=== PATIENT | male | born 1970 | race Caucasian/White ===

== ENCOUNTER 2020-03-11 08:37 | Observation (INO) | payer OTHER ==
[2020-03-11] MEDS ORDERED: HYDROmorphone 1 MG/ML SYRINGE IVP STA ×2 (09:22→11:17)
[2020-03-11] MEDS ORDERED: SODIUM CHLORIDE 0.9% 1,000 ML IV ONE ×2 (09:22→22:48)
[2020-03-11] MEDS ORDERED: IOVERSOL 320 100 ML VIAL IVP ONE ×2 (09:27→15:26)
--- NOTE | 2020-03-11 09:29 | ED Physician Documentation ---
PD HPI ABD PAIN - Stated complaint Stated Complaint: ABD PX - Chief complaint Chief Complaint: Abd Pain - History obtained from History obtained from: Patient - History of Present Illness Timing - onset: Today Timing - duration: Days (1) Timing - details: Abrupt onset Pain level max: 8 Pain level now: 8 Quality: Aching, Pain Location: RLQ, Suprapubic, LLQ Radiation: No: Chest, , Lower back, Left flank, Left shoulder, Right flank, Right shoulder, Upper back Worsened by: Palpation Associated symptoms: Diarrhea. No: Fever, Nausea, Vomiting, Hematemesis, Constipation, Melena, Hematochezia, Dysuria Similar symptoms before: Has not had sx before Recently seen: Not recently seen Review of Systems Constitutional: denies: Fever, Chills Cardiac: denies: Chest pain / pressure Respiratory: denies: Cough GI: reports: Diarrhea. denies: Vomiting, Hematemesis, Bloody / black stool Skin: denies: Rash Musculoskeletal: denies: Neck pain, Back pain Neurologic: denies: Headache PD PAST MEDICAL HISTORY - Past Medical History Past Medical History: Yes Cardiovascular: None Respiratory: None Neuro: None Endocrine/Autoimmune: None GI: GERD, Pancreatitis : None HEENT: Chronic vision loss Psych: None Musculoskeletal: None Derm: None - Past Surgical History Past Surgical History: Yes General: Cholecystectomy Ortho: Spine surgery HEENT: Other - Present Medications Home Medications: Ambulatory Orders Medication Instructions Recorded Confirmed Omeprazole 20 mg PO DAILY 03/11/20 03/11/20 methocarbamoL [Methocarbamol] 500 mg PO Q6H PRN 03/11/20 03/11/20 - Allergies Allergies/Adverse Reactions: Allergies Allergy/AdvReac Type Severity Reaction Status Date / Time Penicillins Allergy Itching Verified 03/11/20 08:43 - Social History Does the pt smoke?: No Smoking Status: Never smoker Does the pt drink ETOH?: No Does the pt have substance abuse?: No - Immunizations Immunizations are current?: Yes - POLST Patient has POLST: No PD ED PE NORMAL - Vitals Vital signs reviewed: Yes - General General: Alert and oriented X 3, Other (appears in pain) - HEENT HEENT: PERRL - Neck Neck: Supple, no meningeal sign - Cardiac Cardiac: RRR, Strong equal pulses - Respiratory Respiratory: No respiratory distress, Clear bilaterally - Abdomen Abdomen: Soft, Non distended, Other (Diffusely tender palpation across the lower abdomen. Positive guarding, positive rebound.) - Back Back: No CVA TTP, No spinal TTP - Derm Derm: Warm and dry - Extremities Extremities: No edema - Neuro Neuro: Alert and oriented X 3 - Psych Psych: Normal mood, Normal affect Results - Vitals Vitals: Vital Signs - 24 hr 03/11/20 03/11/20 03/11/20 08:43 09:18 09:54 Temperature 36.4 C L Heart Rate 103 H 102 H 98 Respiratory 20 20 16 Rate Blood Pressure 121/84 H 140/97 H 120/79 O2 Saturation 94 92 94 03/11/20 10:40 Temperature Heart Rate 92 Respiratory 16 Rate Blood Pressure 123/81 H O2 Saturation 94 Oxygen O2 Source Room air - Labs Labs: Laboratory Tests 03/11/20 03/11/20 03/11/20 09:25 09:25 11:15 WBC 11.5 H RBC 6.41 H Hgb 17.7 Hct 53.1 H MCV 82.8 MCH 27.6 MCHC 33.3 RDW 13.2 Plt Count 233 MPV 10.6 Neut # (Auto) 9.6 H Lymph # (Auto) 1.0 L Wilkinson # (Auto) 0.7 Eos # (Auto) 0.1 Baso # (Auto) 0.0 Absolute Nucleated RBC 0.00 Nucleated RBC % 0.0 Sodium 138 Potassium 3.9 Chloride 100 L Carbon Dioxide 30 Anion Gap 8.0 BUN 19 Creatinine 1.2 Estimated GFR (MDRD) 64 L Glucose 122 H Calcium 10.2 Total Bilirubin 1.0 AST 40 ALT 99 H Alkaline Phosphatase 66 Total Protein 8.9 H Albumin 5.5 Globulin 3.5 Albumin/Globulin Ratio 1.6 Lipase 31 Urine Color DARK YELLOW Urine Clarity CLEAR Urine pH 7.0 Ur Specific [place] <=1.005 Urine Protein 100 H Urine Glucose (UA) NEGATIVE Urine Ketones NEGATIVE Urine Occult Blood NEGATIVE Urine Nitrite NEGATIVE Urine Bilirubin NEGATIVE Urine Urobilinogen 0.2 (NORMAL) Ur Leukocyte Esterase NEGATIVE Urine RBC 0-5 Urine WBC 0-3 Ur Squamous Epith Cells NONE SEEN Urine Bacteria Rare Urine Casts 0-2 Granular Casts Urine Mucus Few Strands Ur Microscopic Review INDICATED Urine Culture Comments NOT INDICATED Ethyl Alcohol < 5.0 - Rads (name of study) CT abdomen pelvis Radiology: Prelim report reviewed, EMP read contemporaneously, See rad report (1. Dilated fluid-filled loop of jejunum with abrupt tapering on coronal image 28. Question partial small bowel obstruction. 2. Fatty liver. 3. Prior cholecystectomy. ) PD MEDICAL DECISION MAKING - ED course Complexity details: reviewed results, re-evaluated patient, considered differential, d/w patient, d/w senior billing consultant ED course: 49-year-old male with what appears to be partial small bowel obstruction. NG tube was placed. Discussed the case with Dr. Tamez, general surgery on-call who will follow. Discussed the case with Dr. Wade, hospitalist who accepts. Pain well controlled. This document was made in part using voice recognition software. While efforts are made to proofread this document, sound alike and grammatical errors may occur. Departure - Departure Disposition: [facility] DC/[facility] Clinical Impression: Small bowel obstruction Condition: Good Discharge Date/Time: 03/11/20 12:25
[2020-03-11 09:51] LABS: BASOPHILS % (AUTO) 0.3 %; EOSINOPHILS # (AUTO) 0.1 10^3/uL (0.0-0.7); HGB - HEMOGLOBIN 17.7 g/dL (14.0-18.0); LYMPHOCYTES % (AUTO) 8.4 %; MEAN CORPUSCULAR HEMOGLOBIN 27.6 pg (27.0-31.0); MEAN CORPUSCULAR HGB CONC 33.3 g/dL (32.0-36.0); MEAN CORPUSCULAR VOLUME 82.8 fL (80.0-94.0); MEAN PLATELET VOLUME 10.6 fL (7.4-11.4); MONOCYTES # (AUTO) 0.7 10^3/uL (0.0-1.0); MONOCYTES % (AUTO) 5.9 %; NEUTROPHILS # (AUTO) 9.6 10^3/uL (1.5-6.6); NEUTROPHILS % (AUTO) 84.1 %; PLT - PLATELET COUNT 233 10^3/uL (130-450); RED BLOOD COUNT 6.41 10^6/uL (4.70-6.10); RED CELL DISTRIBUTION WIDTH 13.2 % (12.0-15.0); WHITE BLOOD COUNT 11.5 x10^3/uL (4.8-10.8)
[2020-03-11 10:05] LABS: ALBUMIN 5.5 g/dL (3.2-5.5); ALBUMIN/GLOBULIN RATIO 1.6 (1.0-2.2); ALKALINE PHOSPHATASE 66 IU/L (42-121); ALT ALANINE AMINOTRANSFERASE 99 IU/L (10-60); AST ASPARTATE AMINOTRANSFERASE 40 IU/L (10-42); BUN - BLOOD UREA NITROGEN 19 mg/dL (6-20); CALCIUM 10.2 mg/dL (8.5-10.3); CARBON DIOXIDE - CO2 30 mmol/L (21-32); CHLORIDE 100 mmol/L (101-111); CREATININE 1.2 mg/dL (0.6-1.2); GLUCOSE 122 mg/dL (70-100); LIPASE 31 U/L (22-51); SODIUM 138 mmol/L (135-145); TOTAL PROTEIN 8.9 g/dL (6.7-8.2)
--- NOTE | 2020-03-11 11:11 | CT Report ---
Reason: difuse lower abd pain Procedure Date: 03/11/2020 Accession Number: [id number] / [id number] Procedure: CT - Abdomen/Pelvis W CPT Code: Final Report FULL RESULT: EXAM: CT ABDOMEN AND PELVIS EXAM DATE: 03/11/2020 10:21 AM. CLINICAL HISTORY: Diffuse lower abd pain. COMPARISONS: None. TECHNIQUE: Routine helical CT imaging was performed through the abdomen and pelvis. IV contrast: 100 mL OPTIRAY 320. Enteric contrast: No. Reconstructions: Coronal and sagittal. In accordance with CT protocol optimization, one or more of the following dose reduction techniques were utilized for this exam: automated exposure control, adjustment of mA and/or KV based on patient size, or use of iterative reconstructive technique. FINDINGS: Lung Bases: Unremarkable. Liver: Fatty liver. No mass evident. Gallbladder/Bile Ducts: Prior cholecystectomy. Spleen: Normal. Pancreas: Normal. Adrenal Glands: Normal. Kidneys: Normal. No masses or hydronephrosis. Peritoneal Cavity/Bowel: Large and small bowel loops are distended with fluid. Most of the small bowel loops are not significantly dilated. There is a loop of dilated jejunum in left hemiabdomen with 4.2 cm diameter and abrupt tapering on coronal image 28. Pelvic Organs: Normal. The bladder and visualized pelvic organs are within normal limits. Vasculature: No aneurysms or other significant abnormality. Bones: No significant abnormality. Other: None. IMPRESSION: 1. Dilated fluid-filled loop of jejunum with abrupt tapering on coronal image 28. Question partial small bowel obstruction. 2. Fatty liver. 3. Prior cholecystectomy. RADIA
[2020-03-11] MEDS ORDERED: LIDOCAINE TOPICAL 4% 50 ML BOTTLE MM STA (11:13)
[2020-03-11] MEDS ORDERED: ONDANSETRON 4 MG/2 ML VIAL IVP PRN (11:24)
[2020-03-11 11:26] LABS: BILIRUBIN,URINE NEGATIVE (NEGATIVE); GLUCOSE, URINE (UA) NEGATIVE (NEGATIVE); KETONES,URINE (UA) NEGATIVE (NEGATIVE); LEUKOCYTE ESTERASE, URINE NEGATIVE (NEGATIVE); NITRITE,URINE NEGATIVE (NEGATIVE); OCCULT BLOOD,URINE NEGATIVE (NEGATIVE); PROTEIN,URINE 100 mg/dL (NEGATIVE); UROBILINOGEN,URINE 0.2 (NORMAL) E.U./dL (NORMAL)
[2020-03-11 11:28] LABS: CLARITY,URINE CLEAR (CLEAR)
--- NOTE | 2020-03-11 11:33 | HISTORY & PHYSICAL EXAMINATION ---
Chief Complaint - Chief Complaint Chief Complaint: abdominal pain History of Present Illness - Admitted From Admitted From:: [facility] ED - History Obtained From Records Reviewed: yes History obtained from: patient - History of Present Illness HPI Comment/Other: Patient is a 49-year-old male who presented to the ED with complaint of lower abdominal pain. It started around 7 AM this morning while he was at work and instantly worsened. His work is sedentary in nature. He described the pain as a crampy/squeezing pain with no radiation. He denied nausea or vomiting fever or chills. He denied chest pain or dyspnea. His last bowel movement was today morning and it was unremarkable. Yesterday he had one episode of diarrhea. He reports a previous occurrence of similar symptoms about 5 years ago. He has history of cholecystectomy in 2013 which was complicated by pancreatitis. He has had 2 or 3 occurrences of pancreatitis for which the work-up has been unremarkable. He does not drink alcohol. Work-up in the ED included a CT of the abdomen pelvis which showed potential partial small bowel obstruction. At the time of presentation his pain was 10 out of 10 scale. He was given a dose of Dilaudid in the ED. He also had an NG tube placed. It is currently current connected to suction with a greenish-yellowish output. Currently he rates his pain 3 out of 10. As a result of the findings, he was presented for admission. History - Past Medical History Cardiovascular: reports: None Respiratory: reports: None Neuro: reports: None Endocrine/Autoimmune: reports: None GI: reports: GERD, Pancreatitis : reports: None HEENT: reports: Chronic vision loss Psych: reports: None Musculoskeletal: reports: None Derm: reports: None MRSA Hx?: No - Past Surgical History General: reports: Cholecystectomy, Colonoscopy (in 01/2020), EGD (in 01/2020) Ortho: reports: Spine surgery, Other (ankle surgery) HEENT: reports: Other - Family & Social History Family History Comment/Other: Cancer on maternal side of family. Unspecified Living arrangement: At home Living Situation: With spouse/s.o. - Substance History Use: Uses substance without health or social issues: NONE - POLST Patient has POLST: No POLST Status: Full Code Meds/Allgy - Home Medications Home Medications: Ambulatory Orders Medication Instructions Recorded Confirmed Omeprazole 20 mg PO DAILY 03/11/20 03/11/20 methocarbamoL [Methocarbamol] 500 mg PO Q6H PRN 03/11/20 03/11/20 - Allergies Allergies/Adverse Reactions: Allergies Allergy/AdvReac Type Severity Reaction Status Date / Time Penicillins Allergy Itching Verified 03/11/20 08:43 Review of Systems - Constitutional Constitutional: denies: Fatigue, Fever, Chills, Weakness - Eyes Eyes: denies: Pain, Irritation - Ears, Nose & Throat Ears, Nose & Throat: denies: Vertigo, Sore throat - Cardiovascular Cariovascular: denies: Irregular heart rate, Palpitations, Chest pain, Edema - Respiratory Respiratory: denies: Cough, Sputum production, Wheezing, SOB at rest, SOB with exertion - Gastrointestinal Gastrointestinal: reports: Abdominal pain, Reflux/heartburn. denies: Nausea, Vomiting - Genitourinary Genitourinary: denies: Dysuria, Frequency, Urgency, Hematuria - Musculoskeletal Musculoskeletal: denies: Muscle pain, Back pain, Muscle aches, Stiffness - Integumentary Integumentary: denies: Rash, Pruritis, Lesions - Neurological Neurological: denies: General weakness, Focal weakness, Headache, Dizziness - Psychiatric Psychiatric: denies: Depression, Anxiety - Endocrine Endocrine: denies: Polyuria, Polydypsia - Hematologic/Lymphatic Hematologic/Lymphatic: denies: Anemia Prior Level of Functionality: He is independent of activities of daily living. He works in the [employer]. Exam - Vital Signs Vital Signs: Vital Signs x48h Temp Pulse Resp BP Pulse Ox 03/11/20 10:40 92 16 123/81 H 94 03/11/20 09:54 98 16 120/79 94 03/11/20 09:18 102 H 20 140/97 H 92 03/11/20 08:43 36.4 C L 103 H 20 121/84 H 94 - Physical Exam General Appearance: positive: Alert, Mild distress, Moderate distress Eyes Bilateral: positive: Normal inspection, PERRL, EOMI ENT: positive: ENT inspection nml, Pharynx nml, No signs of dehydration Neck: positive: No JVD, Trachea midline Respiratory: positive: Chest non-tender, No respiratory distress, Breath sounds nml. negative: Wheezes, Rales, Rhonchi Cardiovascular: positive: Regular rate & rhythm, No murmur Abdomen: positive: No organomegaly, No distention, Tenderness (lower abdomen), Abnml bowel sounds (decreased bowel sounds). negative: Guarding Back: positive: Nml inspection Skin: positive: Color nml, No rash, Warm, Dry. negative: Cyanosis Neurologic/Psychiatric: positive: Oriented x3, Motor nml, Sensation nml, Mood/affect nml Conclusion/Plan - Problem List (1) Partial small bowel obstruction Conclusion/Plan: Patient admitted as observation. Patient made n.p.o. IV hydration with normal saline at 125 mils per hour. NG tube in place. If needed will order medication for pain. Dr. Tamez with general surgery saw the patient. Plan is for conservative management. Bowel rest for now. Will reevaluate in 24 hours if pain worsens and or symptoms do not improve. We will check patient's lipid level. Lipase was 31 (2) GERD (gastroesophageal reflux disease) Conclusion/Plan: Protonic 40mg IV daily. - Lab Results Fish Bones: 03/11/20 09:25 03/11/20 09:25 Core Measures - Anticipated LOS I expect patient to be DC'd or transferred within 96 hours.: Yes - DVT/VTE - Prophylaxis VTE/DVT Device ordered at admit?: Yes
[2020-03-11 11:36] LABS: BACTERIA,URINE Rare /HPF (None Seen); RBC,URINE 0-5 /HPF (0-5); SQUAMOUS EPITHELIAL CELL,UR NONE SEEN (<= Few)
[2020-03-11 11:37] LABS: MUCUS,URINE Few Strands
--- NOTE | 2020-03-11 11:43 | CONSULTATION NOTE ---
Referring Provider Consult Date: 03/11/20 Chief Complaint - Chief Complaint Chief Complaint: SBO History of Present Illness - Admitted From Admitted From:: ED - History Obtained From Records Reviewed: current and past medical records History obtained from: ED MD and patient Exam Limitations: none - History of Present Illness HPI Comment/Other: Wiley is a very pleasant 49 yo WM with a significant PMH/PSH of repeated acute on chronic episodes of pancreatitis. THis started years ago when he was stationed in [place]. He was thoroughly worked up and given an unknown cause of his pancreatitis. He continued to have several episodes and when he returned to the [facility] in 2013 in [place] he was worked up again and was thought he cause was his gallbladder and he underwent surgical removal. IN 2014 he had an episode of SBO resolved with non-surgical treatment and in 2015 he had an episode of pancreatitis resolved with non-surgical treatment. Since 2016 he has been doing well and not had any issues up until his current course. Of note in late january he underwent upper and lower endoscopy and a "look at his pancreas" he states he had benign polyps removed from the pancreas. (I do not have access to these records and am not sure if it was benign colon polyps he had removed and if he underwent the typical EGD or if there was instrumentation to the pancreas.) He feels his current symptoms are similar to those he experienced in 2015 with the SBO as apposed to a pancreatitis episode. He is a non-drinker and non-smoker, is not and was not any medications known to cause pancreatitis, is not aware of any family history of pancreatic problems, but does admit he does not know his father's side family history well. Currently he reports: Timing - onset: Today Timing - duration: Days (1) Timing - details: Abrupt onset Pain level max: 8 Pain level now: 8 Quality: Aching, Pain Location: RLQ, Suprapubic, LLQ Radiation: No: Chest, , Lower back, Left flank, Left shoulder, Right flank, Right shoulder, Upper back Worsened by: Palpation Associated symptoms: Diarrhea. No: Fever, Nausea, Vomiting, Hematemesis, Constipation, Melena, Hematochezia, Dysuria Similar symptoms before: One prior similar episode treated for SBO without surgery in 2014 History - Past Medical History Cardiovascular: reports: None Respiratory: reports: None Neuro: reports: None Endocrine/Autoimmune: reports: None GI: reports: GERD, Pancreatitis : reports: None HEENT: reports: Chronic vision loss Psych: reports: None Musculoskeletal: reports: None Derm: reports: None MRSA Hx?: No - Past Surgical History General: reports: Cholecystectomy Ortho: reports: Spine surgery HEENT: reports: Other - POLST Patient has POLST: No Meds/Allgy - Home Medications Home Medications: Ambulatory Orders Medication Instructions Recorded Confirmed Meloxicam 7.5 mg PO BID PRN 03/11/20 03/11/20 Omeprazole 20 mg PO DAILY 03/11/20 03/11/20 methocarbamoL [Methocarbamol] 500 mg PO Q6H PRN 03/11/20 03/11/20 - Allergies Allergies/Adverse Reactions: Allergies Allergy/AdvReac Type Severity Reaction Status Date / Time Penicillins Allergy Itching Verified 03/11/20 08:43 Review of Systems - Constitutional Constitutional: reports: Fatigue, Poor appetite. denies: Fever, Chills - Eyes Eyes: denies: Pain, Irritation - Ears, Nose & Throat Ears, Nose & Throat: denies: Ear pain, Hearing loss - Cardiovascular Cariovascular: denies: Irregular heart rate, Palpitations, Chest pain - Respiratory Respiratory: denies: Cough, Wheezing - Gastrointestinal Gastrointestinal: reports: Abdominal pain (per HPI) - Genitourinary Genitourinary: denies: Dysuria, Frequency - Musculoskeletal Musculoskeletal: denies: Muscle pain - Integumentary Integumentary: denies: Rash - Neurological Neurological: denies: General weakness, Focal weakness - All Other Systems All Other Systems: reports: Reviewed and negative Exam - Vital Signs Reviewed Vital Signs: Yes Vital Signs: Vital Signs x48h Temp Pulse Resp BP Pulse Ox 03/11/20 10:40 92 16 123/81 H 94 03/11/20 09:54 98 16 120/79 94 03/11/20 09:18 102 H 20 140/97 H 92 03/11/20 08:43 36.4 C L 103 H 20 121/84 H 94 - Physical Exam General Appearance: positive: No acute distress Eyes Bilateral: positive: Normal inspection Neck: positive: Nml inspection Respiratory: positive: No respiratory distress, Breath sounds nml Cardiovascular: positive: Regular rate & rhythm Abdomen: positive: Abnml bowel sounds, Other (Moderate distention with mild diffuse abdmoinal pain, no peritoneal signs, no R/G/R) Skin: positive: Color nml, No rash, Warm, Dry Extremities: positive: Non-tender, Full ROM, Nml appearance Neurologic/Psychiatric: positive: Oriented x3, Mood/affect nml Conclusion and Plan - Lab Results Laboratory Results 03/11/20 11:15: Urine Color DARK YELLOW, Urine Clarity CLEAR, Urine pH 7.0, Ur Specific [place] <=1.005, Urine Protein 100 H, Urine Glucose (UA) NEGATIVE, Urine Ketones NEGATIVE, Urine Occult Blood NEGATIVE, Urine Nitrite NEGATIVE, Urine Bilirubin NEGATIVE, Urine Urobilinogen 0.2 (NORMAL), Ur Leukocyte Esterase NEGATIVE, Urine RBC 0-5, Urine WBC 0-3, Ur Squamous Epith Cells NONE SEEN, Urine Bacteria Rare, Urine Casts 0-2 Granular Casts, Urine Mucus Few Strands, Ur Microscopic Review INDICATED, Urine Culture Comments NOT INDICATED 03/11/20 09:25: Sodium 138, Potassium 3.9, Chloride 100 L, Carbon Dioxide 30, Anion Gap 8.0, BUN 19, Creatinine 1.2, Estimated GFR (MDRD) 64 L, Glucose 122 H, Calcium 10.2, Total Bilirubin 1.0, AST 40, ALT 99 H, Alkaline Phosphatase 66, Total Protein 8.9 H, Albumin 5.5, Globulin 3.5, Albumin/Globulin Ratio 1.6, Lipase 31, Ethyl Alcohol < 5.0 03/11/20 09:25: WBC 11.5 H, RBC 6.41 H, Hgb 17.7, Hct 53.1 H, MCV 82.8, MCH 27.6, MCHC 33.3, RDW 13.2, Plt Count 233, MPV 10.6, Neut # (Auto) 9.6 H, Lymph # (Auto) 1.0 L, Desha # (Auto) 0.7, Eos # (Auto) 0.1, Baso # (Auto) 0.0, Absolute Nucleated RBC 0.00, Nucleated RBC % 0.0 - Diagnostic Imaging Results Diagnostic Imaging Results: positive: Final report reviewed, Read independently Diagnostic Imaging Results Comments: possible early partial SBO with dilated loops of bowel, mainly the small bowel and a short segment of mildly decompress bowel without an obvious transition po int, air throughout the entire bowel to the rectum - Diagnosis Diagnosis: early partial SBO - Plan Plan: In depth, discussion with the patient was held. We went through the normal anatomy and physiology; we then discussed the pathophysiology of the disease and lastly the possible etiologies including his past medical and surgery history. We discussed his specific clinical, laboratory and imaging findings. We then went through the indications for the surgery and the alternatives including open vs laparoscopic approach, and non operative management with NG, IVF, bowel rest and observation. We reviewed the risks, the benefits and potential short term and long-term complications of each of the options. We went through the success rates of each option as related to the level of obstruction and imagining findings. They have expressed understanding of the operations complications to include but not limited to bleeding, infection, need to convert to open operation, injury to neighboring structures, need for bowel resection or ostomy formation, need for further/future surgery, future bowel obstructions, as well as anesthetic complications including blood clots, heart attack, stroke and were explained to the patient. The patient understands and accepts these risks. Their questions were answered to their satisfaction. The patient understands and agrees with our current recommended plan of care of non-surgical conservative approach with NG, NPO, IVF and bowel rest. Hopefully we can obtain his outside records as well to better understand what was done endoscopically.
--- NOTE | 2020-03-11 13:40 | PHARMACY PROGRESS NOTE ---
- Best Possible Medication History Admit Date and Time: 03/11/20 1124 Processed by: Pharmacy Medication History completed: Yes Patient Interview: Completed Secondary Source(s): Insurance records (PATIENT WAS ABLE TO CONFIRM HOMEMEDS ) As the person ultimately responsible for medication therapy, providers are able to order a medication from an existing home medication list in [facility] via the "Reconcile Routine" prior to Confirmation of that medication by contracting support specialist. Such practice is discouraged except when the physician, in their clinical judgment, deems that a medical need exists for a medication without regard to previous use.
[2020-03-11] MEDS: SODIUM CHLORIDE 0.9% 1,000 ML IV SCH ×2 (15:07→16:50)
[2020-03-11] MEDS: PANTOPRAZOLE 40 MG VIAL IVP SCH (16:47)
[2020-03-11] MEDS: SODIUM CHLORIDE FLUSH 0.9% 10 ML SYRINGE IVP SCH (16:47)
[2020-03-11] MEDS: BENZOCAINE SPRAY MM PRN ×2 (16:49→21:46)
[2020-03-11] MEDS ORDERED: MORPHINE 10 MG/ML VIAL IVP PRN (20:43)
[2020-03-12] MEDS: SODIUM CHLORIDE FLUSH 0.9% 10 ML SYRINGE IVP SCH ×4 (01:18→23:38)
--- NOTE | 2020-03-12 01:19 | XRAY Report ---
Reason: For NG tube placement Procedure Date: 03/11/2020 Accession Number: [id number] / [id number] Procedure: XR - Chest for Line Placement CPT Code: Final Report FULL RESULT: EXAM: CHEST RADIOGRAPHY EXAM DATE: 03/11/2020 10:42 PM. CLINICAL HISTORY: For NG tube placement. COMPARISON: None. TECHNIQUE: 1 view. FINDINGS: The enteric tube courses into the stomach. The distal course of the catheter is not well seen as a result of the patient's body habitus. The mediastinal and cardiac silhouettes are normal. Low lung volumes are seen with bibasilar airspace opacities. There is no pleural effusion or pneumothorax. IMPRESSION: The enteric tube courses in the stomach with distal catheter obscured. Low lung volumes with bibasilar airspace opacities. RADIA
[2020-03-12] MEDS: SODIUM CHLORIDE 0.9% 1,000 ML IV SCH ×3 (03:26→19:11)
[2020-03-12 04:55] LABS: BASOPHILS % (AUTO) 0.2 %; EOSINOPHILS # (AUTO) 0.1 10^3/uL (0.0-0.7); HGB - HEMOGLOBIN 14.4 g/dL (14.0-18.0); LYMPHOCYTES % (AUTO) 11.7 %; MEAN CORPUSCULAR HEMOGLOBIN 28.5 pg (27.0-31.0); MEAN CORPUSCULAR HGB CONC 33.6 g/dL (32.0-36.0); MEAN CORPUSCULAR VOLUME 84.8 fL (80.0-94.0); MEAN PLATELET VOLUME 10.1 fL (7.4-11.4); MONOCYTES # (AUTO) 0.7 10^3/uL (0.0-1.0); MONOCYTES % (AUTO) 7.9 %; NEUTROPHILS # (AUTO) 6.5 10^3/uL (1.5-6.6); PLT - PLATELET COUNT 165 10^3/uL (130-450); RED BLOOD COUNT 5.06 10^6/uL (4.70-6.10); RED CELL DISTRIBUTION WIDTH 13.2 % (12.0-15.0); WHITE BLOOD COUNT 8.2 x10^3/uL (4.8-10.8)
[2020-03-12 05:05] LABS: CALCIUM 8.5 mg/dL (8.5-10.3); CREATININE 0.9 mg/dL (0.6-1.2)
[2020-03-12 05:15] LABS: AMYLASE 55 U/L (28-100); CHOL/HDL RATIO 8.6 (<5.0); CHOLESTEROL 164 mg/dL; HDL CHOLESTEROL 19 mg/dL; LDL CHOLESTEROL,CALCULATED 114 mg/dL; LIPASE 33 U/L (22-51); VLDL CHOLESTEROL 31 mg/dL
[2020-03-12] MEDS: PANTOPRAZOLE 40 MG VIAL IVP SCH (06:54)
[2020-03-12] MEDS: SODIUM CHLORIDE FLUSH 0.9% 10 ML SYRINGE IVP PRN (06:54)
[2020-03-12] MEDS: BENZOCAINE SPRAY MM PRN ×2 (06:59→14:58)
[2020-03-12] MEDS: MORPHINE 2 MG/ML CARPUJECT IVP PRN ×3 (07:02→23:38)
--- NOTE | 2020-03-12 07:30 | PROVIDER PROGRESS NOTE ---
Assessment/Plan - Problem List (1) Partial small bowel obstruction Assessment/Plan: Patient's abdominal pain is currently mild. Rated 2 out of 10. Patient has not yet passed gas. NG tube is to suction. There has been 600 mils of greenish-yellow which secretions over the past 24 hours. Patient encouraged to ambulate as much as he can. We will switch patient from observation to inpatient. If no improvement by tomorrow morning, will discuss further with surgery. (2) GERD (gastroesophageal reflux disease) Assessment/Plan: On protonix IV (3) Hypertriglyceridemia Assessment/Plan: Triglycerides mildly elevated at 156 Diet modification encouraged. Patient may follow-up with PCP for further management. - Current Meds Current Meds: Current Medications Generic Name Dose Route Start Last Admin Trade Name Freq PRN Reason Stop Dose Admin Benzocaine 1 sprays 03/11/20 16:11 03/12/20 06:59 Hurricaine MM 1 spr Q4HR PRN Administration Mouth Sore Pain Sodium Chloride 1,000 mls @ 125 mls/hr 03/11/20 12:00 03/12/20 03:26 Normal Saline 0.9% IV 125 mls/hr .Q8H MERON Administration Morphine Sulfate 2 mg 03/11/20 22:21 03/12/20 07:02 Morphine (Carpuject) IVP 2 mg Q2HR PRN Administration PAIN Pantoprazole Sodium 40 mg 03/11/20 12:00 03/12/20 06:54 Protonix IVP 40 mg QDAC MERON Administration Sodium Chloride 10 ml 03/11/20 11:24 03/12/20 06:54 Normal Saline Flush 0.9% IVP 10 ml PRN PRN Administration NEEDED PER PROVIDER ORDERS Sodium Chloride 10 ml 03/11/20 17:00 03/12/20 01:18 Normal Saline Flush 0.9% IVP Not Given 0100,0900,1700 MERON - Lab Result Fish Bone Diagrams: 03/12/20 04:50 03/12/20 04:50 - Additional Planning My Orders: My Active Orders 03/11/20 11:24 Activity Orders [RC] Q2HR IO [RC] IOSHIFT Initiate Bowel Care Protocol [RC] .protocol Initiate Line Care Protocol [RC] QSHIFT Initiate Personal Care Protoco [RC] .protocol Oxygen Therapy [RC] .PRN Telemetry- [RC] Q4HR Vital Signs [RC] Q4HR Ondansetron Inj [Zofran Inj] 4 mg IVP Q6HR PRN Sodium Chloride Flush 0.9% [Normal Saline Flush 0.9%] 10 ml IVP PRN PRN Code Status [OTHERS] Routine Condition of Patient [OTHERS] Routine DVT Prophylaxis [OTHERS] Routine 03/11/20 11:25 NPO except Meds [DIET] 03/11/20 11:26 General Surgery Consult [CONS] Routine 03/11/20 11:27 SCDs [RC] QSHIFT 03/11/20 12:00 Pantoprazole [Protonix] 40 mg IVP QDAC Sodium Chloride 0.9% [Normal Saline 0.9%] 1,000 ml IV 125 mls/hr 03/11/20 16:11 Benzocaine [Hurricaine] 1 sprays MM Q4HR PRN 03/11/20 17:00 Sodium Chloride Flush 0.9% [Normal Saline Flush 0.9%] 10 ml IVP 0100,0900,1700 03/12/20 09:00 Enoxaparin [Lovenox] 40 mg SUBQ DAILY 03/13/20 05:00 BMP - BASIC METABOLIC PANEL [CHEM] DAILYLAB CBC - COMP BLD CT W/AUTO DIFF [HEME] DAILYLAB 03/14/20 05:00 BMP - BASIC METABOLIC PANEL [CHEM] DAILYLAB CBC - COMP BLD CT W/AUTO DIFF [HEME] DAILYLAB 03/15/20 05:00 BMP - BASIC METABOLIC PANEL [CHEM] DAILYLAB CBC - COMP BLD CT W/AUTO DIFF [HEME] DAILYLAB 03/16/20 05:00 BMP - BASIC METABOLIC PANEL [CHEM] DAILYLAB CBC - COMP BLD CT W/AUTO DIFF [HEME] DAILYLAB Subjective - Subjective Patient Reports: Other (Patient seen and examined this morning. He was resting comfortably in bed at time of exam. He rated his pain 2 out of 10. Over the past 24 hours there has been about 600 mils of gastric content via the NG tube. It is mostly greenish-yellowish. He has not been able to pass gas. He denied any other complaints at the moment.) Objective Vital Signs: Vital Signs - 24 hr 03/11/20 03/11/20 03/11/20 08:43 09:18 09:54 Temperature 36.4 C L Heart Rate 103 H 102 H 98 Heart Rate [ Monitoring electrodes] Respiratory 20 20 16 Rate Blood Pressure 121/84 H 140/97 H 120/79 Blood Pressure [Right Brachial artery] O2 Saturation 94 92 94 03/11/20 03/11/20 03/11/20 10:40 12:12 12:29 Temperature 36.6 C Heart Rate 92 100 Heart Rate [ 98 Monitoring electrodes] Respiratory 16 18 14 Rate Blood Pressure 123/81 H 128/87 H Blood Pressure 128/82 H [Right Brachial artery] O2 Saturation 94 96 94 03/11/20 03/11/20 03/11/20 15:58 20:32 23:40 Temperature 36.8 C 36.8 C 37.0 C Heart Rate Heart Rate [ 80 79 82 Monitoring electrodes] Respiratory 16 17 16 Rate Blood Pressure Blood Pressure 115/74 123/71 137/77 H [Right Brachial artery] O2 Saturation 95 96 94 03/12/20 03:00 Temperature 37.1 C Heart Rate Heart Rate [ 80 Monitoring electrodes] Respiratory 16 Rate Blood Pressure Blood Pressure 132/74 H [Right Brachial artery] O2 Saturation 93 Oxygen O2 Source Room air I&O (Last 24 Hrs): Intake and Output Totals x24h 03/10/20 03/11/20 03/12/20 23:59 23:59 23:59 Intake Total 1000 2000 Balance 1000 1999 General: Alert, Oriented x3, Mild distress HEENT: Atraumatic, PERRLA, EOMI, Other (NG tube in place. Connected to wall suction) Neck: Supple, No JVD Neuro: Alert, Oriented Times 3 Cardiovascular: Regular rate, No murmurs Respiratory: Chest non-tender, No respiratory distress, Breath sounds nml Abdomen: Soft, Other (mild lower abdomen tenderness. Decreased bowel sounds) Extremities: No clubbing, No cyanosis, No edema Skin: No rashes - Results Results: Laboratory Results WBC 8.2 x10^3/uL (4.8-10.8) 03/12/20 04:50 RBC 5.06 10^6/uL (4.70-6.10) 03/12/20 04:50 Hgb 14.4 g/dL (14.0-18.0) 03/12/20 04:50 Hct 42.9 % (42.0-52.0) 03/12/20 04:50 MCV 84.8 fL (80.0-94.0) 03/12/20 04:50 MCH 28.5 pg (27.0-31.0) 03/12/20 04:50 MCHC 33.6 g/dL (32.0-36.0) 03/12/20 04:50 RDW 13.2 % (12.0-15.0) 03/12/20 04:50 Plt Count 165 10^3/uL (130-450) 03/12/20 04:50 MPV 10.1 fL (7.4-11.4) 03/12/20 04:50 Neut # (Auto) 6.5 10^3/uL (1.5-6.6) 03/12/20 04:50 Lymph # (Auto) 1.0 10^3/uL (1.5-3.5) L 03/12/20 04:50 [place] # (Auto) 0.7 10^3/uL (0.0-1.0) 03/12/20 04:50 Eos # (Auto) 0.1 10^3/uL (0.0-0.7) 03/12/20 04:50 Baso # (Auto) 0.0 10^3/uL (0.0-0.1) 03/12/20 04:50 Absolute Nucleated RBC 0.00 x10^3/uL 03/12/20 04:50 Nucleated RBC % 0.0 /100WBC 03/12/20 04:50 Sodium 140 mmol/L (135-145) 03/12/20 04:50 Potassium 3.7 mmol/L (3.5-5.0) 03/12/20 04:50 Chloride 106 mmol/L (101-111) 03/12/20 04:50 Carbon Dioxide 26 mmol/L (21-32) 03/12/20 04:50 Anion Gap 8.0 (6-13) 03/12/20 04:50 BUN 18 mg/dL (6-20) 03/12/20 04:50 Creatinine 0.9 mg/dL (0.6-1.2) 03/12/20 04:50 Estimated GFR (MDRD) 89 (>89) 03/12/20 04:50 Glucose 102 mg/dL (70-100) H 03/12/20 04:50 Calcium 8.5 mg/dL (8.5-10.3) 03/12/20 04:50 Total Bilirubin 1.0 mg/dL (0.2-1.0) 03/11/20 09:25 AST 40 IU/L (10-42) 03/11/20 09:25 ALT 99 IU/L (10-60) H 03/11/20 09:25 Alkaline Phosphatase 66 IU/L (42-121) 03/11/20 09:25 Total Protein 8.9 g/dL (6.7-8.2) H 03/11/20 09:25 Albumin 5.5 g/dL (3.2-5.5) 03/11/20 09:25 Globulin 3.5 g/dL (2.1-4.2) 03/11/20 09:25 Albumin/Globulin Ratio 1.6 (1.0-2.2) 03/11/20 09:25 Triglycerides 156 mg/dL (-149) H 03/12/20 04:50 Cholesterol 164 mg/dL (-199) 03/12/20 04:50 LDL Cholesterol, Calc 114 mg/dL (-129) 03/12/20 04:50 VLDL Cholesterol 31 mg/dL 03/12/20 04:50 HDL Cholesterol 19 mg/dL (60-) L 03/12/20 04:50 LDL/HDL Ratio 6.0 (<3.6) 03/12/20 04:50 Cholesterol/HDL Ratio 8.6 (<5.0) 03/12/20 04:50 Amylase 55 U/L (28-100) 03/12/20 04:50 Lipase 33 U/L (22-51) 03/12/20 04:50 Urine Color DARK YELLOW 03/11/20 11:15 Urine Clarity CLEAR (CLEAR) 03/11/20 11:15 Urine pH 7.0 PH (5.0-7.5) 03/11/20 11:15 Ur Specific [place] <=1.005 (1.002-1.030) 03/11/20 11:15 Urine Protein 100 mg/dL (NEGATIVE) H 03/11/20 11:15 Urine Glucose (UA) NEGATIVE mg/dL (NEGATIVE) 03/11/20 11:15 Urine Ketones NEGATIVE mg/dL (NEGATIVE) 03/11/20 11:15 Urine Occult Blood NEGATIVE (NEGATIVE) 03/11/20 11:15 Urine Nitrite NEGATIVE (NEGATIVE) 03/11/20 11:15 Urine Bilirubin NEGATIVE (NEGATIVE) 03/11/20 11:15 Urine Urobilinogen 0.2 (NORMAL) E.U./dL (NORMAL) 03/11/20 11:15 Ur Leukocyte Esterase NEGATIVE (NEGATIVE) 03/11/20 11:15 Urine RBC 0-5 /HPF (0-5) 03/11/20 11:15 Urine WBC 0-3 /HPF (0-3) 03/11/20 11:15 Ur Squamous Epith Cells NONE SEEN (<= Few) 03/11/20 11:15 Urine Bacteria Rare /HPF (None Seen) 03/11/20 11:15 Urine Casts 3-5 Hyaline Casts /LPF0-2 Granular Casts /LPF 03/11/20 11:15 Urine Casts 3-5 Hyaline Casts /LPF0-2 Granular Casts /LPF 03/11/20 11:15 Urine Mucus Few Strands 03/11/20 11:15 Ur Microscopic Review INDICATED 03/11/20 11:15 Urine Culture Comments NOT INDICATED 03/11/20 11:15 Ethyl Alcohol < 5.0 mg/dL 03/11/20 09:25 ABX Reporting Has patient been on IV antibiotics over the past 48 hours?: No
[2020-03-12] MEDS: ENOXAPARIN 40 MG/0.4 ML SYRINGE SUBQ SCH (08:44)
--- NOTE | 2020-03-12 14:16 | PROVIDER PROGRESS NOTE ---
Subjective - General Admit Date: 03/11/20 - Review of Systems Drain Type: NG Drain Output Description: thick bilious color Approximate mls Output: 850 ml General: positive: No symptoms (Over all feeling much better) Gastrointestinal: positive: Other (cramping pain is much less, no gas, no nausea). negative: Nausea, Vomiting, Flatus All Other Systems: positive: Reviewed and negative Objective - Patient Data Reviewed Vital Signs: Yes Vital Signs: Vital Signs x48h Temp Pulse Pulse Resp BP Pulse Ox 03/12/20 11:10 36.8 C 82 16 115/65 93 03/12/20 10:29 37.1 C 87 16 95 03/12/20 08:05 37.1 C 87 17 122/73 93 Weight: Weight 03/10/20 03/11/20 03/12/20 23:59 23:59 23:59 Weight (kg) 111 kg Intake & Output: Intake and Output Totals x24h 03/10/20 03/11/20 03/12/20 23:59 23:59 23:59 Intake Total 1000 3000 Output Total 600 Balance 1000 2400 - Lab Results Lab Results: 03/12/20 04:50 03/12/20 04:50 Other Lab Results: Lab Results x24hrs 03/12/20 03/12/20 03/12/20 Range/Units 04:50 04:50 04:50 WBC 8.2 (4.8-10.8) x10^3/uL RBC 5.06 (4.70-6.10) 10^6/uL Hgb 14.4 (14.0-18.0) g/dL Hct 42.9 (42.0-52.0) % MCV 84.8 (80.0-94.0) fL MCH 28.5 (27.0-31.0) pg MCHC 33.6 (32.0-36.0) g/dL RDW 13.2 (12.0-15.0) % Plt Count 165 (130-450) 10^3/uL MPV 10.1 (7.4-11.4) fL Neut # (Auto) 6.5 (1.5-6.6) 10^3/uL Lymph # (Auto) 1.0 L (1.5-3.5) 10^3/uL [place] # (Auto) 0.7 (0.0-1.0) 10^3/uL Eos # (Auto) 0.1 (0.0-0.7) 10^3/uL Baso # (Auto) 0.0 (0.0-0.1) 10^3/uL Absolute Nucleated RBC 0.00 x10^3/uL Nucleated RBC % 0.0 /100WBC Sodium 140 (135-145) mmol/L Potassium 3.7 (3.5-5.0) mmol/L Chloride 106 (101-111) mmol/L Carbon Dioxide 26 (21-32) mmol/L Anion Gap 8.0 (6-13) BUN 18 (6-20) mg/dL Creatinine 0.9 (0.6-1.2) mg/dL Estimated GFR (MDRD) 89 (>89) Glucose 102 H (70-100) mg/dL Calcium 8.5 (8.5-10.3) mg/dL Triglycerides 156 H ( - 149) mg/dL Cholesterol 164 ( - 199) mg/dL LDL Cholesterol, Calc 114 ( - 129) mg/dL VLDL Cholesterol 31 mg/dL HDL Cholesterol 19 L (60 - ) mg/dL LDL/HDL Ratio 6.0 (<3.6) Cholesterol/HDL Ratio 8.6 (<5.0) Amylase 55 (28-100) U/L Lipase 33 (22-51) U/L - Current Medications Current Medications: Current Medications Generic Name Dose Route Start Last Admin Trade Name Freq PRN Reason Stop Dose Admin Benzocaine 1 sprays 03/11/20 16:11 03/12/20 06:59 Hurricaine MM 1 spr Q4HR PRN Administration Mouth Sore Pain Enoxaparin Sodium 40 mg 03/12/20 09:00 03/12/20 08:44 Lovenox SUBQ 40 mg DAILY MERON Administration Sodium Chloride 1,000 mls @ 125 mls/hr 03/11/20 12:00 03/12/20 11:31 Normal Saline 0.9% IV 125 mls/hr .Q8H MERON Administration Morphine Sulfate 2 mg 03/11/20 22:21 03/12/20 07:02 Morphine (Carpuject) IVP 2 mg Q2HR PRN Administration PAIN Pantoprazole Sodium 40 mg 03/11/20 12:00 03/12/20 06:54 Protonix IVP 40 mg QDAC MERON Administration Sodium Chloride 10 ml 03/11/20 11:24 03/12/20 06:54 Normal Saline Flush 0.9% IVP 10 ml PRN PRN Administration NEEDED PER PROVIDER ORDERS Sodium Chloride 10 ml 03/11/20 17:00 03/12/20 07:55 Normal Saline Flush 0.9% IVP Not Given 0100,0900,1700 MERON - Physical Exam General Appearance: positive: No acute distress ENT: positive: Other (NG tube in place functioning well) Respiratory: positive: No respiratory distress, Breath sounds nml Cardiovascular: positive: Regular rate & rhythm Abdomen: positive: Other (Less distented, minimal diffuse tenderness, soft, no peritoneal signs, no R/G/R, rare BS) Skin: positive: Color nml, Warm, Dry Extremities: positive: Full ROM, Nml appearance Neurologic/Psychiatric: positive: Oriented x3, Mood/affect nml Impression/Plan - Problem List Problem List: SBO most likely secondary to surgical adhesions plan to continue to non-surgical management with NPO, NG, IVF and await bowel function return. Ambulation encouraged and ice chips/popsicles allowed.
[2020-03-13] MEDS: SODIUM CHLORIDE 0.9% 1,000 ML IV SCH ×3 (03:39→20:18)
[2020-03-13 05:35] LABS: BASOPHILS % (AUTO) 0.3 %; EOSINOPHILS # (AUTO) 0.1 10^3/uL (0.0-0.7); EOSINOPHILS % (AUTO) 1.5 %; HGB - HEMOGLOBIN 14.6 g/dL (14.0-18.0); LYMPHOCYTES # (AUTO) 1.1 10^3/uL (1.5-3.5); LYMPHOCYTES % (AUTO) 15.3 %; MEAN CORPUSCULAR HEMOGLOBIN 28.8 pg (27.0-31.0); MEAN CORPUSCULAR HGB CONC 34.2 g/dL (32.0-36.0); MEAN CORPUSCULAR VOLUME 84.2 fL (80.0-94.0); MEAN PLATELET VOLUME 10.6 fL (7.4-11.4); MONOCYTES # (AUTO) 0.7 10^3/uL (0.0-1.0); MONOCYTES % (AUTO) 9.5 %; NEUTROPHILS # (AUTO) 5.5 10^3/uL (1.5-6.6); NEUTROPHILS % (AUTO) 73.1 %; PLT - PLATELET COUNT 175 10^3/uL (130-450); RED BLOOD COUNT 5.07 10^6/uL (4.70-6.10); RED CELL DISTRIBUTION WIDTH 12.8 % (12.0-15.0); WHITE BLOOD COUNT 7.5 x10^3/uL (4.8-10.8)
[2020-03-13 05:39] LABS: CALCIUM 8.7 mg/dL (8.5-10.3); CREATININE 0.9 mg/dL (0.6-1.2)
[2020-03-13] MEDS: PANTOPRAZOLE 40 MG VIAL IVP SCH (06:21)
[2020-03-13] MEDS: SODIUM CHLORIDE FLUSH 0.9% 10 ML SYRINGE IVP PRN (06:21)
[2020-03-13] MEDS: BENZOCAINE SPRAY MM PRN (06:22)
[2020-03-13] MEDS: SODIUM CHLORIDE FLUSH 0.9% 10 ML SYRINGE IVP SCH ×2 (08:43→16:43)
[2020-03-13] MEDS: ENOXAPARIN 40 MG/0.4 ML SYRINGE SUBQ SCH (08:43)
--- NOTE | 2020-03-13 11:46 | PROVIDER PROGRESS NOTE ---
Assessment/Plan - Problem List (1) Partial small bowel obstruction Assessment/Plan: He is ambulating without pain, and passed gas. Gen Surgeon saw him today. Will try to clamp ng tube, possibly remove and then advance diet continue iv fluids, ant-emetics prn (2) Hypokalemia Assessment/Plan: Replace Follow BMP daily - Current Meds Current Meds: Current Medications Generic Name Dose Route Start Last Admin Trade Name Freq PRN Reason Stop Dose Admin Benzocaine 1 sprays 03/11/20 16:11 03/13/20 06:22 Hurricaine MM 1 spr Q4HR PRN Administration Mouth Sore Pain Enoxaparin Sodium 40 mg 03/12/20 09:00 03/13/20 08:43 Lovenox SUBQ Not Given DAILY MERON Sodium Chloride 1,000 mls @ 125 mls/hr 03/11/20 12:00 03/13/20 03:39 Normal Saline 0.9% IV 125 mls/hr .Q8H MERON Administration Morphine Sulfate 2 mg 03/11/20 22:21 03/12/20 23:38 Morphine (Carpuject) IVP 2 mg Q2HR PRN Administration PAIN Pantoprazole Sodium 40 mg 03/11/20 12:00 03/13/20 06:21 Protonix IVP 40 mg QDAC MERON Administration Sodium Chloride 10 ml 03/11/20 11:24 03/13/20 06:21 Normal Saline Flush 0.9% IVP 10 ml PRN PRN Administration NEEDED PER PROVIDER ORDERS Sodium Chloride 10 ml 03/11/20 17:00 03/13/20 08:43 Normal Saline Flush 0.9% IVP Not Given 0100,0900,1700 MERON - Lab Result Fish Bone Diagrams: 03/13/20 04:50 03/13/20 04:50 - Additional Planning My Orders: My Active Orders 03/13/20 11:29 Miscellaenous Nursing Order [RC] ONCE Subjective - Subjective Patient Reports: Feeling Better Objective Vital Signs: Vital Signs - 24 hr 03/12/20 03/12/20 03/13/20 15:36 20:40 01:00 Temperature 36.9 C 37.3 C 36.9 C Heart Rate [ 80 78 Brachial] Heart Rate [ 84 Monitoring electrodes] Respiratory 20 19 18 Rate Blood Pressure 125/74 129/71 135/76 H [Right Brachial artery] O2 Saturation 93 93 94 03/13/20 03/13/20 03:46 08:22 Temperature 37.2 C 36.9 C Heart Rate [ 74 75 Brachial] Heart Rate [ Monitoring electrodes] Respiratory 20 18 Rate Blood Pressure 131/70 H 132/82 H [Right Brachial artery] O2 Saturation 95 94 Oxygen O2 Source Room air I&O (Last 24 Hrs): Intake and Output Totals x24h 03/11/20 03/12/20 03/13/20 23:59 23:59 23:59 Intake Total 1000 3956.25 1000 Output Total 1250 200 Balance 1000 2706.25 800 General: Alert, Oriented x3 HEENT: Mucous membr. moist/pink, Other (NG tube in place) Neuro: Alert, Non Focal Cardiovascular: Regular rate Respiratory: No respiratory distress Abdomen: Soft Extremities: No edema - Results Results: Laboratory Results WBC 7.5 x10^3/uL (4.8-10.8) 03/13/20 04:50 RBC 5.07 10^6/uL (4.70-6.10) 03/13/20 04:50 Hgb 14.6 g/dL (14.0-18.0) 03/13/20 04:50 Hct 42.7 % (42.0-52.0) 03/13/20 04:50 MCV 84.2 fL (80.0-94.0) 03/13/20 04:50 MCH 28.8 pg (27.0-31.0) 03/13/20 04:50 MCHC 34.2 g/dL (32.0-36.0) 03/13/20 04:50 RDW 12.8 % (12.0-15.0) 03/13/20 04:50 Plt Count 175 10^3/uL (130-450) 03/13/20 04:50 MPV 10.6 fL (7.4-11.4) 03/13/20 04:50 Neut # (Auto) 5.5 10^3/uL (1.5-6.6) 03/13/20 04:50 Lymph # (Auto) 1.1 10^3/uL (1.5-3.5) L 03/13/20 04:50 [place] # (Auto) 0.7 10^3/uL (0.0-1.0) 03/13/20 04:50 Eos # (Auto) 0.1 10^3/uL (0.0-0.7) 03/13/20 04:50 Baso # (Auto) 0.0 10^3/uL (0.0-0.1) 03/13/20 04:50 Absolute Nucleated RBC 0.00 x10^3/uL 03/13/20 04:50 Nucleated RBC % 0.0 /100WBC 03/13/20 04:50 Sodium 138 mmol/L (135-145) 03/13/20 04:50 Potassium 3.4 mmol/L (3.5-5.0) L 03/13/20 04:50 Chloride 105 mmol/L (101-111) 03/13/20 04:50 Carbon Dioxide 24 mmol/L (21-32) 03/13/20 04:50 Anion Gap 9.0 (6-13) 03/13/20 04:50 BUN 12 mg/dL (6-20) 03/13/20 04:50 Creatinine 0.9 mg/dL (0.6-1.2) 03/13/20 04:50 Estimated GFR (MDRD) 89 (>89) 03/13/20 04:50 Glucose 85 mg/dL (70-100) 03/13/20 04:50 Calcium 8.7 mg/dL (8.5-10.3) 03/13/20 04:50 Total Bilirubin 1.0 mg/dL (0.2-1.0) 03/11/20 09:25 AST 40 IU/L (10-42) 03/11/20 09:25 ALT 99 IU/L (10-60) H 03/11/20 09:25 Alkaline Phosphatase 66 IU/L (42-121) 03/11/20 09:25 Total Protein 8.9 g/dL (6.7-8.2) H 03/11/20 09:25 Albumin 5.5 g/dL (3.2-5.5) 03/11/20 09:25 Globulin 3.5 g/dL (2.1-4.2) 03/11/20 09:25 Albumin/Globulin Ratio 1.6 (1.0-2.2) 03/11/20 09:25 Triglycerides 156 mg/dL (-149) H 03/12/20 04:50 Cholesterol 164 mg/dL (-199) 03/12/20 04:50 LDL Cholesterol, Calc 114 mg/dL (-129) 03/12/20 04:50 VLDL Cholesterol 31 mg/dL 03/12/20 04:50 HDL Cholesterol 19 mg/dL (60-) L 03/12/20 04:50 LDL/HDL Ratio 6.0 (<3.6) 03/12/20 04:50 Cholesterol/HDL Ratio 8.6 (<5.0) 03/12/20 04:50 Amylase 55 U/L (28-100) 03/12/20 04:50 Lipase 33 U/L (22-51) 03/12/20 04:50 Urine Color DARK YELLOW 03/11/20 11:15 Urine Clarity CLEAR (CLEAR) 03/11/20 11:15 Urine pH 7.0 PH (5.0-7.5) 03/11/20 11:15 Ur Specific [place] <=1.005 (1.002-1.030) 03/11/20 11:15 Urine Protein 100 mg/dL (NEGATIVE) H 03/11/20 11:15 Urine Glucose (UA) NEGATIVE mg/dL (NEGATIVE) 03/11/20 11:15 Urine Ketones NEGATIVE mg/dL (NEGATIVE) 03/11/20 11:15 Urine Occult Blood NEGATIVE (NEGATIVE) 03/11/20 11:15 Urine Nitrite NEGATIVE (NEGATIVE) 03/11/20 11:15 Urine Bilirubin NEGATIVE (NEGATIVE) 03/11/20 11:15 Urine Urobilinogen 0.2 (NORMAL) E.U./dL (NORMAL) 03/11/20 11:15 Ur Leukocyte Esterase NEGATIVE (NEGATIVE) 03/11/20 11:15 Urine RBC 0-5 /HPF (0-5) 03/11/20 11:15 Urine WBC 0-3 /HPF (0-3) 03/11/20 11:15 Ur Squamous Epith Cells NONE SEEN (<= Few) 03/11/20 11:15 Urine Bacteria Rare /HPF (None Seen) 03/11/20 11:15 Urine Casts 3-5 Hyaline Casts /LPF0-2 Granular Casts /LPF 03/11/20 11:15 Urine Casts 3-5 Hyaline Casts /LPF0-2 Granular Casts /LPF 03/11/20 11:15 Urine Mucus Few Strands 03/11/20 11:15 Ur Microscopic Review INDICATED 03/11/20 11:15 Urine Culture Comments NOT INDICATED 03/11/20 11:15 Ethyl Alcohol < 5.0 mg/dL 03/11/20 09:25
--- NOTE | 2020-03-13 11:57 | PROVIDER PROGRESS NOTE ---
Subjective - General Admit Date: 03/11/20 - Review of Systems Drain Type: NG Drain Output Description: thick bilious color Approximate mls Output: 850 ml - Other Other Information/Narrative: Doing well, no pain or nausea, no distension, is passing flatus. Low volume NGT output. Objective - Patient Data Reviewed Vital Signs: Yes Vital Signs: Vital Signs x48h Temp Pulse Resp BP Pulse Ox 03/13/20 08:22 36.9 C 75 18 132/82 H 94 Weight: Weight 03/11/20 03/12/20 03/13/20 23:59 23:59 23:59 Weight (kg) 111 kg Intake & Output: Intake and Output Totals x24h 03/11/20 03/12/20 03/13/20 23:59 23:59 23:59 Intake Total 1000 3956.25 1000 Output Total 1250 200 Balance 1000 2706.25 800 - Lab Results Lab Results: 03/13/20 04:50 03/13/20 04:50 Other Lab Results: Lab Results x24hrs 03/13/20 03/13/20 Range/Units 04:50 04:50 WBC 7.5 (4.8-10.8) x10^3/uL RBC 5.07 (4.70-6.10) 10^6/uL Hgb 14.6 (14.0-18.0) g/dL Hct 42.7 (42.0-52.0) % MCV 84.2 (80.0-94.0) fL MCH 28.8 (27.0-31.0) pg MCHC 34.2 (32.0-36.0) g/dL RDW 12.8 (12.0-15.0) % Plt Count 175 (130-450) 10^3/uL MPV 10.6 (7.4-11.4) fL Neut # (Auto) 5.5 (1.5-6.6) 10^3/uL Lymph # (Auto) 1.1 L (1.5-3.5) 10^3/uL [place] # (Auto) 0.7 (0.0-1.0) 10^3/uL Eos # (Auto) 0.1 (0.0-0.7) 10^3/uL Baso # (Auto) 0.0 (0.0-0.1) 10^3/uL Absolute Nucleated RBC 0.00 x10^3/uL Nucleated RBC % 0.0 /100WBC Sodium 138 (135-145) mmol/L Potassium 3.4 L (3.5-5.0) mmol/L Chloride 105 (101-111) mmol/L Carbon Dioxide 24 (21-32) mmol/L Anion Gap 9.0 (6-13) BUN 12 (6-20) mg/dL Creatinine 0.9 (0.6-1.2) mg/dL Estimated GFR (MDRD) 89 (>89) Glucose 85 (70-100) mg/dL Calcium 8.7 (8.5-10.3) mg/dL - Current Medications Current Medications: Current Medications Generic Name Dose Route Start Last Admin Trade Name Freq PRN Reason Stop Dose Admin Benzocaine 1 sprays 03/11/20 16:11 03/13/20 06:22 Hurricaine MM 1 spr Q4HR PRN Administration Mouth Sore Pain Enoxaparin Sodium 40 mg 03/12/20 09:00 03/13/20 08:43 Lovenox SUBQ Not Given DAILY MERON Sodium Chloride 1,000 mls @ 125 mls/hr 03/11/20 12:00 03/13/20 03:39 Normal Saline 0.9% IV 125 mls/hr .Q8H MERON Administration Morphine Sulfate 2 mg 03/11/20 22:21 03/12/20 23:38 Morphine (Carpuject) IVP 2 mg Q2HR PRN Administration PAIN Pantoprazole Sodium 40 mg 03/11/20 12:00 03/13/20 06:21 Protonix IVP 40 mg QDAC MERON Administration Sodium Chloride 10 ml 03/11/20 11:24 03/13/20 06:21 Normal Saline Flush 0.9% IVP 10 ml PRN PRN Administration NEEDED PER PROVIDER ORDERS Sodium Chloride 10 ml 03/11/20 17:00 03/13/20 08:43 Normal Saline Flush 0.9% IVP Not Given 0100,0900,1700 MERON - Physical Exam Comments/Other: AAO, NAD EOMI, MMS NGT to LIWS, gastric contents in canister unlabored RA abd soft, nt/nd MAEW Impression/Plan - Problem List Problem List: SBO - low grade, appears to be resolving - clamp NGT for trial, will remove later if tolerating - ok for CLD while clamped - ambulate, OOB
[2020-03-13] MEDS: POTASSIUM CHLOR 10 MEQ/100 ML 10 MEQ/100 ML BAG IV SCH ×2 (14:23→16:43)
[2020-03-14] MEDS: SODIUM CHLORIDE FLUSH 0.9% 10 ML SYRINGE IVP SCH ×2 (00:16→09:00)
[2020-03-14] MEDS: SODIUM CHLORIDE 0.9% 1,000 ML IV SCH (03:51)
[2020-03-14 05:36] LABS: BASOPHILS % (AUTO) 0.3 %; EOSINOPHILS # (AUTO) 0.1 10^3/uL (0.0-0.7); EOSINOPHILS % (AUTO) 1.8 %; HGB - HEMOGLOBIN 14.6 g/dL (14.0-18.0); LYMPHOCYTES # (AUTO) 1.1 10^3/uL (1.5-3.5); LYMPHOCYTES % (AUTO) 16.8 %; MEAN CORPUSCULAR HEMOGLOBIN 28.6 pg (27.0-31.0); MEAN PLATELET VOLUME 10.5 fL (7.4-11.4); MONOCYTES # (AUTO) 0.6 10^3/uL (0.0-1.0); MONOCYTES % (AUTO) 9.8 %; NEUTROPHILS # (AUTO) 4.6 10^3/uL (1.5-6.6); NEUTROPHILS % (AUTO) 71.1 %; PLT - PLATELET COUNT 175 10^3/uL (130-450); RED BLOOD COUNT 5.11 10^6/uL (4.70-6.10); RED CELL DISTRIBUTION WIDTH 12.7 % (12.0-15.0); WHITE BLOOD COUNT 6.5 x10^3/uL (4.8-10.8)
[2020-03-14 05:47] LABS: CALCIUM 8.9 mg/dL (8.5-10.3); CREATININE 0.9 mg/dL (0.6-1.2)
[2020-03-14] MEDS: SODIUM CHLORIDE FLUSH 0.9% 10 ML SYRINGE IVP PRN (06:24)
[2020-03-14] MEDS: PANTOPRAZOLE 40 MG VIAL IVP SCH (06:24)
[2020-03-14] MEDS ORDERED: SODIUM CHLORIDE 0.9% 1,000 ML IV SCH (08:21)
[2020-03-14] MEDS: ENOXAPARIN 40 MG/0.4 ML SYRINGE SUBQ SCH (09:00)
[2020-03-14 09:04] VITALS: BP 120/72
--- NOTE | 2020-03-14 10:27 | Discharge Plan ---
Discharge Plan Problem Reviewed?: Yes Disposition: Home, Self Care Condition: Stable Diet: Soft Activity Restrictions: Activity as Tolerated Shower Restrictions: No Driving Restrictions: No Instruction Topics: Obstruction Sm Bowel Health Concerns: Partial bowel obstruction required bowel rest, iv fluids and symptom control. Plan of Treatment: Stay on a soft diet for several more days. OK to resume your usual medications. See your [facility] PCP for a hospital follow-up exam. Care Goals: Improvement in symptoms and stabilization are the goals. Assessment: The patient is agreeable with the plan. No Smoking: If you smoke, Please STOP! Call for help. Follow-up with: DHRUV LANDERS MD [Physician No Access] -
--- NOTE | 2020-03-14 10:57 | DISCHARGE SUMMARY ---
"Discharge Summary Admit Date: 03/11/20 Discharge Date: 03/14/20 Discharging Provider: Dr Ashlee Farmer Primary Care Provider: Dr Evangelista, [facility] Code Status: Attempt Resuscitation Condition at Discharge: Stable Discharge Disposition: 01 Home, Self Care - HPI History of Present Illness: From the admission H&P of Dr Collin Wade: Patient is a 49-year-old male who presented to the ED with complaint of lower abdominal pain. It started around 7 AM this morning while he was at work and instantly worsened. His work is sedentary in nature. He described the pain as a crampy/squeezing pain with no radiation. He denied nausea or vomiting fever or chills. He denied chest pain or dyspnea. His last bowel movement was today morning and it was unremarkable. Yesterday he had one episode of diarrhea. He reports a previous occurrence of similar symptoms about 5 years ago. He has history of cholecystectomy in 2013 which was complicated by pancreatitis. He has had 2 or 3 occurrences of pancreatitis for which the work-up has been unremarkable. He does not drink alcohol. Work-up in the ED included a CT of the abdomen pelvis which showed potential partial small bowel obstruction. At the time of presentation his pain was 10 out of 10 scale. He was given a dose of Dilaudid in the ED. He also had an NG tube placed. It is currently current connected to suction with a greenish-yellowish output. Currently he rates his pain 3 out of 10. He was admitted for managing partial small bowel obstruction. - CONSULTS | PROCEDURES Consultations: Dr Tamez and Dr Becker, General Surgery - HOSPITAL COURSE Hospital Course: (1) Partial small bowel obstruction He was managed with iv fluids, pain meds and ant-emetics prn and ng decompression and bowel rest. No Gastograffin was used. He started to pass flatus, his ng tube was then clamped and he did not deteriorate, thus it was removed. His diet was advanced which he tolerated. The Gen Surgeons followed along and had no different recommendations. A KUB film on day of discharge confirmed resolving bowel obstruction. (2) Hypokalemia Replaced Potassium. (3) GERD He was kept on his home meds. - ALLERGIES Allergies/Adverse Reactions: Allergies Allergy/AdvReac Type Severity Reaction Status Date / Time Penicillins Allergy Itching Verified 03/11/20 08:43 - MEDICATIONS Home Medications: Ambulatory Orders Medication Instructions Recorded Confirmed Omeprazole 20 mg PO DAILY 03/11/20 03/11/20 methocarbamoL [Methocarbamol] 500 mg PO Q6H PRN 03/11/20 03/11/20 - PHYSICAL EXAM AT DISCHARGE General Appearance: positive: No acute distress, Alert Eyes Bilateral: positive: Normal inspection, EOMI ENT: positive: ENT inspection nml, No signs of dehydration Neck: positive: Nml inspection, No JVD Respiratory: positive: No respiratory distress Cardiovascular: positive: Regular rate & rhythm Abdomen: positive: Non-tender, No distention Skin: positive: Color nml Extremities: positive: No pedal edema Neurologic/Psychiatric: positive: Oriented x3, Other (Non-focal) - LABS Result Diagrams: 03/14/20 05:00 03/14/20 05:00 - DIAGNOSTIC IMAGING Diagnostic Imaging Results: Final report reviewed - FOLLOW UP Follow Up: See PCP in hospital follow-up in 5-10 days. - TIME SPENT Time Spent in Discharge (Minutes): 30"
--- NOTE | 2020-03-14 10:57 | PROVIDER PROGRESS NOTE ---
Subjective - General Admit Date: 03/11/20 - Review of Systems Drain Type: NG Drain Output Description: thick bilious color Approximate mls Output: 850 ml Gastrointestinal: negative: Nausea, Vomiting, Flatus - Other Other Information/Narrative: Much improved, NGT out, passing flatus and minimally burping but no nausea or distension, luda CLD Objective - Patient Data Reviewed Vital Signs: Yes Vital Signs: Vital Signs x48h Temp Pulse Resp BP Pulse Ox 03/14/20 09:00 36.6 C 73 18 120/72 95 03/14/20 04:57 37.0 C 93 18 126/67 97 Intake & Output: Intake and Output Totals x24h 03/12/20 03/13/20 03/14/20 23:59 23:59 23:59 Intake Total 3956.25 4160 2002.75 Output Total 1250 300 Balance 2706.25 3860 2002.75 - Lab Results Lab Results: 03/14/20 05:00 03/14/20 05:00 Other Lab Results: Lab Results x24hrs 03/14/20 03/14/20 Range/Units 05:00 05:00 WBC 6.5 (4.8-10.8) x10^3/uL RBC 5.11 (4.70-6.10) 10^6/uL Hgb 14.6 (14.0-18.0) g/dL Hct 42.9 (42.0-52.0) % MCV 84.0 (80.0-94.0) fL MCH 28.6 (27.0-31.0) pg MCHC 34.0 (32.0-36.0) g/dL RDW 12.7 (12.0-15.0) % Plt Count 175 (130-450) 10^3/uL MPV 10.5 (7.4-11.4) fL Neut # (Auto) 4.6 (1.5-6.6) 10^3/uL Lymph # (Auto) 1.1 L (1.5-3.5) 10^3/uL Clay # (Auto) 0.6 (0.0-1.0) 10^3/uL Eos # (Auto) 0.1 (0.0-0.7) 10^3/uL Baso # (Auto) 0.0 (0.0-0.1) 10^3/uL Absolute Nucleated RBC 0.00 x10^3/uL Nucleated RBC % 0.0 /100WBC Sodium 141 (135-145) mmol/L Potassium 3.5 (3.5-5.0) mmol/L Chloride 107 (101-111) mmol/L Carbon Dioxide 21 (21-32) mmol/L Anion Gap 13.0 (6-13) BUN 12 (6-20) mg/dL Creatinine 0.9 (0.6-1.2) mg/dL Estimated GFR (MDRD) 89 (>89) Glucose 88 (70-100) mg/dL Calcium 8.9 (8.5-10.3) mg/dL - Current Medications Current Medications: Current Medications Generic Name Dose Route Start Last Admin Trade Name Freq PRN Reason Stop Dose Admin Benzocaine 1 sprays 03/11/20 16:11 03/13/20 06:22 Hurricaine MM 1 spr Q4HR PRN Administration Mouth Sore Pain Enoxaparin Sodium 40 mg 03/12/20 09:00 03/14/20 09:00 Lovenox SUBQ 40 mg DAILY MERON Administration Morphine Sulfate 2 mg 03/11/20 22:21 03/12/20 23:38 Morphine (Carpuject) IVP 2 mg Q2HR PRN Administration PAIN Pantoprazole Sodium 40 mg 03/11/20 12:00 03/14/20 06:24 Protonix IVP 40 mg QDAC MERON Administration Sodium Chloride 10 ml 03/11/20 11:24 03/14/20 06:24 Normal Saline Flush 0.9% IVP 10 ml PRN PRN Administration NEEDED PER PROVIDER ORDERS Sodium Chloride 10 ml 03/11/20 17:00 03/14/20 09:00 Normal Saline Flush 0.9% IVP 10 ml 0100,0900,1700 MERON Administration - Physical Exam Comments/Other: AAO, NAD EOMI, MMM unlabored RA abd soft, nt/nd MAEW Impression/Plan - Problem List Problem List: SBO - low grade, resolved - NGT out - ADAT to low fiber/ bland - ambulate, OOB - ok for home today Pt had many appropriate questions regarding etiology, diet, expectation of recurrence and we thoroughly discussed. [place]/ low fiber diet for 1-2 weeks then return to normal but avoid extensive fibrous/ hard to digest foods together. Call our office prn with questions.
--- NOTE | 2020-03-14 10:57 | XRAY Report ---
Reason: Eval if resolved partial SBO Procedure Date: 03/14/2020 Accession Number: [id number] / [id number] Procedure: XR - Abdomen 1 View X-Ray CPT Code: 88652 Final Report FULL RESULT: EXAM: ABDOMEN RADIOGRAPHY EXAM DATE: 03/14/2020 10:41 AM. CLINICAL HISTORY: Follow-up partial SBO. COMPARISON: CT abdomen and pelvis 03/11/2020. TECHNIQUE: Supine, 1 view. FINDINGS: Bowel Gas Pattern: Improved, with generally less dilated small bowel loops. Residual mildly dilated gas-filled small bowel loops up to 4 cm in the left abdomen. Gas present in nondilated colon. Other: Right upper quadrant clips. IMPRESSION: 1. Interval improvement compatible with resolving partial SBO. RADIA
== END 2020-03-14 12:56 | disposition home or self-care (01) ==
LOC: ED 08:37 → MS2 11:24
PROVIDERS: ADMIT Internal Medicine; ATTEND Internal Medicine
DX: K56.600 Partial intestinal obstruction, unspecified as to cause (principal); E87.6 Hypokalemia; E78.1 Pure hyperglyceridemia; K21.9 Gastro-esophageal reflux disease without esophagitis; H54.7 Unspecified visual loss; Z87.19 Personal history of other diseases of the digestive system; Z90.49 Acquired absence of other specified parts of digestive tract
CPT/HCPCS: 36415; 74018; 74177; 80048; 80053; 80061; 80320; 81001; 82150; 83690; 85025; 96361; 96365; 96366; 96372; 96375; 96376; 99284; 99285; A9270; G0378; J1170; J1650; Q9967; 71045; 81003; 83721; 87086

== ENCOUNTER 2020-11-08 10:16 | Emergency (ER) | payer OTHER ==
--- NOTE | 2020-11-08 10:21 | ED Physician Documentation ---
PD HPI URI - Stated complaint Stated Complaint: SOA - History obtained from History obtained from: Patient - History of Present Illness Timing - onset: How many days ago (4-5) Timing duration: Days (4-5) Timing details: Still present Associated symptoms: Chills, Nasal congestion, Sore throat, Dry cough. No: Hemoptysis, Dyspnea Contributing factors: Sick contact (His is similarly sick). No: Travel, Immunocompromised, COPD / asthma Improves by: Rest. No: Medication Worsened by: Activity Similar symptoms before: Has not had sx before Recently seen: Clinic (He was seen outpatient and had a Covid test 3 days ago with the result yesterday of positive) Review of Systems Constitutional: reports: Chills, Myalgias. denies: Fever Nose: reports: Congestion. denies: Rhinorrhea / runny nose Throat: reports: Sore throat (main symptoms) Cardiac: denies: Chest pain / pressure Respiratory: reports: Dyspnea, Cough. denies: Wheezing GI: denies: Nausea, Vomiting, Diarrhea : denies: Dysuria Skin: denies: Rash Neurologic: reports: Generalized weakness. denies: Near syncope, Confused, Altered mental status, Headache PD PAST MEDICAL HISTORY - Past Medical History Cardiovascular: None Respiratory: None Neuro: None Endocrine/Autoimmune: None GI: GERD, Pancreatitis : None HEENT: Chronic vision loss Psych: None Musculoskeletal: None Derm: None - Past Surgical History Past Surgical History: Yes General: Cholecystectomy Ortho: Spine surgery HEENT: Other - Present Medications Home Medications: Ambulatory Orders Medication Instructions Recorded Confirmed Omeprazole 20 mg PO DAILY 03/11/20 11/08/20 Albuterol Sulf [Ventolin Hfa 1 - 2 puffs INH Q4HR PRN #1 inhaler 11/08/20 Inhaler] HYDROcod/ACETAM 5/325 [[place]esa 5/325] 1 ea PO Q6H PRN #18 tablet 11/08/20 dexAMETHasone [Decadron] 4 mg PO DAILY #5 tablet 11/08/20 diphenhydrAMINE ELIXIR [Benadryl 25 mg PO Q6H PRN #240 udc 11/08/20 Elixir] - Allergies Allergies/Adverse Reactions: Allergies Allergy/AdvReac Type Severity Reaction Status Date / Time Penicillins Allergy Itching Verified 03/11/20 08:43 - Social History Does the pt smoke?: No Smoking Status: Never smoker Does the pt drink ETOH?: No Does the pt have substance abuse?: No - Immunizations Immunizations are current?: Yes - POLST Patient has POLST: No POLST Status: Full Code PD ED PE NORMAL - Vitals Vital signs reviewed: Yes - General General: Alert and oriented X 3, No acute distress, Well developed/nourished - HEENT HEENT: No: Pharynx benign (Mild general redness without any exudate. No peritonsillar swelling.) - Neck Neck: Supple, no meningeal sign, No adenopathy - Cardiac Cardiac: RRR, No murmur - Respiratory Respiratory: Clear bilaterally - Abdomen Abdomen: Soft, Non tender - Extremities Extremities: No edema, No calf tenderness / cord - Neuro Neuro: Alert and oriented X 3, No motor deficit, Normal speech Eye Opening: Spontaneous Motor: Obeys Commands Verbal: Oriented GCS Score: 15 Results - Vitals Vitals: Vital Signs - 24 hr 11/08/20 11/08/20 11/08/20 10:32 10:37 11:41 Temperature 37.0 C Heart Rate 91 85 88 Respiratory 22 18 18 Rate Blood Pressure 127/85 H 121/82 H 119/80 O2 Saturation 98 96 96 11/08/20 11/08/20 11/08/20 13:03 13:30 14:00 Temperature Heart Rate 81 85 93 Respiratory 18 19 20 Rate Blood Pressure 119/77 114/76 119/77 O2 Saturation 94 94 95 11/08/20 14:46 Temperature 37.2 C Heart Rate 84 Respiratory 17 Rate Blood Pressure 111/73 O2 Saturation 93 Oxygen O2 Source Room air - Labs Labs: Laboratory Tests 11/08/20 11:02 Group A Strep Rapid Negative - Rads (name of study) chest xray Radiology: Prelim report reviewed, See rad report (no infiltrates) PD MEDICAL DECISION MAKING - ED course Complexity details: reviewed results, re-evaluated patient, considered differential (General URI symptoms with main complaint of sore throat. There is some redness but does not look bacterial per se. Strep test was performed which is negative. The patient does meet criteria for administration of Bamlanivamab and so given this in ER. ), d/w patient Departure - Departure Disposition: 01 Home, Self Care Clinical Impression: COVID-19 Pharyngitis Qualifiers: Pharyngitis/tonsillitis etiology: unspecified etiology Qualified Code(s): J02.9 - Acute pharyngitis, unspecified Upper respiratory infection Qualifiers: URI type: unspecified URI Qualified Code(s): J06.9 - Acute upper respiratory infection, unspecified Condition: Stable Record reviewed to determine appropriate education?: Yes Instructions: COVID-19 [facility] Prescriptions: Albuterol Sulf [Ventolin Hfa Inhaler] 1 - 2 puffs INH Q4HR PRN #1 inhaler PRN Reason: Shortness Of Air/Wheezing diphenhydrAMINE ELIXIR [Benadryl Elixir] 25 mg PO Q6H PRN #240 udc PRN Reason: Pain dexAMETHasone [Decadron] 4 mg PO DAILY #5 tablet HYDROcod/ACETAM 5/325 [Mesa 5/325] 1 ea PO Q6H PRN #18 tablet PRN Reason: Pain
[2020-11-08] MEDS ORDERED: CHERRY SYRUP 10 ML UDC PO ONE (11:06)
[2020-11-08] MEDS ORDERED: DEXAMETHASONE 10 MG/ML VIAL PO STA (11:06)
[2020-11-08] MEDS ORDERED: diphenhydrAMINE ELIXIR 25 MG/10 ML UDC PO STA (11:06)
[2020-11-08] MEDS ORDERED: HYDROcod/ACETAM 5/325 MG TABLET PO STA (11:06)
[2020-11-08] MEDS ORDERED: BENZONATATE 100 MG CAPSULE PO STA (11:06)
[2020-11-08 11:35] LABS: RAPID STREP SCREEN Negative (Negative)
--- NOTE | 2020-11-08 11:53 | XRAY Report ---
PROCEDURE: Chest 1 View X-Ray INDICATIONS: cough/dyspnea; COVID pos TECHNIQUE: One view of the chest was acquired. COMPARISON: CXR 03/11/2020. Lung bases on CT of 03/11/2020. FINDINGS: Surgical changes and devices: Question of cervical spine hardware partially visualized. Lungs and pleura: No pleural effusions or pneumothorax. Prominent pulmonary vasculature markings. L ow lung volumes. Question of mild airspace opacity in the left lung base. Mediastinum: Mediastinal contours appear normal. Heart size is normal. Bones and chest wall: No suspicious bony lesions. Overlying soft tissues appear unremarkable. IMPRESSION: Prominent pulmonary vasculature markings. Question of mild airspace opacity in the left lung base which could be due to pneumonia or atelectasi s. Reviewed by: Shahab Raymundo MD on 11/08/2020 10:52 AM [facility] Approved by: Shahab Raymundo MD on 11/08/2020 10:52 AM [facility] Station ID: [id number]
[2020-11-08] MEDS ORDERED: BAMLANIVIMAB IV ONE (13:30)
[2020-11-08] MEDS ORDERED: SODIUM CHLORIDE 0.9% IV ONE (13:30)
[2020-11-08 15:26] VITALS: BP 121/78
== END 2020-11-08 15:45 | disposition home or self-care (01) ==
LOC: ED 10:16
DX: U07.1 COVID-19 (principal); J02.9 Acute pharyngitis, unspecified; J06.9 Acute upper respiratory infection, unspecified
CPT/HCPCS: 71045; 87070; 87077; 87430; 99284; A9270; Q0239

== ENCOUNTER 2023-05-20 11:34 | Day surgery (SDC) | payer OTHER ==
[2023-05-20] MEDS ORDERED: PROPOFOL 500 MG/50 ML 500 MG/50 ML VIAL ONE ×2 (11:39→13:42)
[2023-05-20] MEDS ORDERED: LACTATED RINGERS 1,000 ML IV ONE (11:52)
--- NOTE | 2023-05-20 12:13 | ANESTHESIA ---
Pre-Anesthesia VS, & Labs - Diagnosis history of barretts, screening exam - Procedure EGD and colonoscopy Vital Signs: Temp Pulse Resp BP Pulse Ox O2 Flow Rate 36.0 C L 68 18 117/72 97 05/20/23 11:45 05/20/23 11:45 05/20/23 11:45 05/20/23 11:45 05/20/23 11:45 Height: 5 ft 8 in Weight (kg): 109 kg Body Mass Index: 36.5 BMI Classification: Obese - NPO >8 hours Home Medications and Allergies Home Medications: Ambulatory Orders Cyclobenzaprine [Flexeril] 10 mg PO TID PRN 05/20/23 Loratadine 10 mg PO DAILY 05/20/23 Meloxicam 15 mg PO DAILY 05/20/23 Multivitamin 1 each PO DAILY 05/20/23 Omeprazole 20 mg PO DAILY 03/11/20 Cyclobenzaprine [Flexeril] 10 mg PO TID PRN 05/20/23 Loratadine 10 mg PO DAILY 05/20/23 Meloxicam 15 mg PO DAILY 05/20/23 Multivitamin 1 each PO DAILY 05/20/23 Allergies/Adverse Reactions: Allergies Allergy/AdvReac Type Severity Reaction Status Date / Time Penicillins Allergy Itching Verified 05/20/23 12:08 Anes History & Medical History - Anesthetic History Anesthesia Complications: reports: Slow wake-up - Medical History Cardiovascular: reports: High cholesterol Pulmonary: reports: Sleep apnea (uses cpap everynight) Gastrointestinal: reports: GERD, Pancreatitis, Other (hx of small bowel obstruction) Urinary: reports: None Neuro: reports: None Musculoskeletal: reports: None Endocrine/Autoimmune: reports: None Blood Disorders: reports: None Skin: reports: None Smoking Status: Never smoker Psychosocial: reports: Other (PTSD) History of Cancer?: No - Surgical History General: reports: Cholecystectomy, Colonoscopy Eyes Ears Nose Throat (EENT): reports: Other Orthopedic: reports: Spine surgery (ACDF) Exam General: Alert, Oriented x3, Cooperative, No acute distress Dental: WNL Mouth Openin Fingerbreadth Neck Mobility: Normal Mallampati classification: III Thyromental Distance: 4-6 cm Mental/Cognitive Status: Alert/Oriented X3, Normal for patient Plan Anesthesia Type: General Consent for Procedure(s) Verified and Reviewed: Yes Code Status: Attempt Resuscitation ASA classification: 3-Severe systemic disease Is this case an emergency?: No
--- NOTE | 2023-05-20 13:03 | HISTORY & PHYSICAL EXAMINATION ---
Chief Complaint - Chief Complaint Chief Complaint: here for egd and colonoscopy History of Present Illness - History Obtained From Records Reviewed: yes History obtained from: pt Exam Limitations: none - History of Present Illness HPI Comment/Other: hx barretts. on a ppi bid. no problems. here for egd and colonoscopy for screening. no gi symptoms History - Past Medical History Cardiovascular: reports: High cholesterol Respiratory: reports: Sleep apnea (uses cpap everynight) Neuro: reports: None Endocrine/Autoimmune: reports: None GI: reports: GERD, Pancreatitis, Other (hx of small bowel obstruction) : reports: None HEENT: reports: Chronic vision loss Psych: reports: Depression, Post traumatic stress disorder Musculoskeletal: reports: None Derm: reports: None MRSA Hx?: No - Past Surgical History General: reports: Cholecystectomy, Colonoscopy Ortho: reports: Spine surgery (ACDF) HEENT: reports: Other - Family & Social History Family History Comment/Other: Cancer on maternal side of family. Unspecified - Substance History Use: Uses substance without health or social issues: NONE - POLST Patient has POLST: No POLST Status: Full Code Meds/Allgy - Home Medications Home Medications: Ambulatory Orders Medication Instructions Recorded Confirmed Omeprazole 20 mg PO DAILY 03/11/20 05/20/23 Cyclobenzaprine [Flexeril] 10 mg PO TID PRN 05/20/23 05/20/23 Loratadine 10 mg PO DAILY 05/20/23 05/20/23 Meloxicam 15 mg PO DAILY 05/20/23 05/20/23 Multivitamin 1 each PO DAILY 05/20/23 05/20/23 - Allergies Allergies/Adverse Reactions: Allergies Allergy/AdvReac Type Severity Reaction Status Date / Time Penicillins Allergy Itching Verified 05/20/23 12:08 Review of Systems - Other Findings Other Findings: 10 pt ros as above otherwise unremarkable Exam - Vital Signs Vital Signs: Vital Signs x48h Temp Pulse Resp BP Pulse Ox 05/20/23 11:45 36.0 C L 68 18 117/72 97 - Physical Exam General Appearance: positive: No acute distress, Alert Eyes Bilateral: positive: PERRL, EOMI, No scleral icterus ENT: positive: No signs of dehydration Neck: positive: No JVD, Trachea midline Respiratory: positive: No respiratory distress Cardiovascular: positive: Regular rate & rhythm Abdomen: positive: No distention Neurologic/Psychiatric: positive: Oriented x3 Conclusion/Plan - Problem List (1) GERD (gastroesophageal reflux disease) Conclusion/Plan: plan egd for hx barretts and colonoscopy for colon cancer screening. parq held and consent obtained
[2023-05-20] MEDS ORDERED: GLYCOPYRROLATE 1 MG/5 ML VIAL ONE (13:57)
[2023-05-20 14:44] VITALS: BP 109/77
--- NOTE | 2023-05-26 08:09 | ANESTHESIA POST OP EVALUATION ---
Anesthesia Post Eval - Post Anesthesia Eval Vitals: Last Vital Signs Temp 36.0 C L 05/20/23 14:43 Pulse 74 05/20/23 14:43 Resp 16 05/20/23 14:43 BP 109/77 05/20/23 14:43 Pulse Ox 97 05/20/23 14:43 O2 Flow Rate CV Function Including HR & BP: Stable Pain Control: Satisfactory Nausea & Vomiting: Negative Mental Status: Baseline Respiratory Status: Airway Patent Hydration Status: Satisfactory Anesthesia Complications: None
== END 2023-05-20 11:35 | disposition home or self-care (01) ==
LOC: SDS 11:34
PROVIDERS: ATTEND Surgery
PROC: 0DB38ZX Excision of Lower Esophagus, Via Natural or Artificial Opening Endoscopic, Diagnostic (ICD-10-PCS; principal; 2023-05-20 13:00)
PROC: 0DB78ZX Excision of Stomach, Pylorus, Via Natural or Artificial Opening Endoscopic, Diagnostic (ICD-10-PCS; 2023-05-20 13:00)
DX: Z12.11 Encounter for screening for malignant neoplasm of colon (principal); G47.30 Sleep apnea, unspecified; K22.70 Barrett's esophagus without dysplasia; K21.9 Gastro-esophageal reflux disease without esophagitis; K29.50 Unspecified chronic gastritis without bleeding; E66.9 Obesity, unspecified; Z68.36 Body mass index [BMI] 36.0-36.9, adult
CPT/HCPCS: 43239; 45378; J7120

== ENCOUNTER 2024-01-11 17:29 | Outpatient (CLI) | payer OTHER ==
--- NOTE | 2024-01-12 13:40 | MRI Report ---
PROCEDURE: Lumbar Spine WO INDICATIONS: LOW BACK PAIN TECHNIQUE: Noncontrast sagittal T1 spin echo and T2 fast echo, sagittal STIR, axial T1 and T2 fast spin echo thr ough the lumbar spine. In cases with scoliosis, additional coronal T2 fast spin echo may be performe d. COMPARISON: Correlation is made with abdomen pelvis CT, 03/11/2020 FINDINGS: Image quality: Excellent. Alignment and Curvature: There is minimal anterolisthesis is seen at L4-L5 and at L5-S1. Bone Marrow: Marrow is of normal overall signal. No acute vertebral body compression fractures. Spinal Cord: Conus medullaris terminates at the L1 level. Visualized cord demonstrates normal signa l and size. Paraspinous Soft Tissues: No paravertebral masses. T12-L1: Normal in appearance. L1-L2: Normal in appearance. L2-L3: Normal in appearance. L3-L4: The disc height is relatively well preserved. Mild to moderate disc bulge is seen at this le esau. Mild facet hypertrophy is seen. Moderate bilateral neural foraminal narrowing is seen. No cent ral canal narrowing is seen. L4-L5: The disc height is relatively well preserved. Mild disc bulge is seen. Moderate to prominen t facet hypertrophy can be seen. Moderate bilateral neural foraminal narrowing is seen. Moderate ce ntral canal narrowing is seen. L5-S1: The disc height is well-preserved. There is loss of disc signal seen. Mild disc bulge is see n, which is eccentric to the left. Mild facet hypertrophy is seen. There is mild to moderate right-s ided and moderate to severe left-sided neuroforaminal narrowing. There is a degree of compression see n upon the exiting left L5 nerve root. Mild central canal narrowing is seen. IMPRESSION: Lower lumbar spine degenerative changes can be seen, including moderate to severe left-sided neurofor aminal narrowing at L5-S1. Reviewed by: Luis Sutton MD on 01/12/2024 12:38 PM [place] Approved by: Luis Sutton MD on 01/12/2024 12:38 PM [place] Station ID: [id number]
== END 2024-01-11 17:30 | disposition home or self-care (01) ==
LOC: DI 17:29
PROVIDERS: ATTEND Internal Medicine
DX: M47.816 Spondylosis without myelopathy or radiculopathy, lumbar region (principal); M48.07 Spinal stenosis, lumbosacral region